=== PATIENT | female | born 1995 | race African-American/Black ===

== ENCOUNTER 2023-02-23 02:15 | Inpatient (IN) | payer SELFPAY ==
[2023-02-23] MEDS ORDERED: Ondansetron 4 MG/2 ML SDV IVPUSH ONE (02:32)
[2023-02-23] MEDS ORDERED: Sodium Chloride 0.9% 2.5 ML Syringe FLUSH PRN ×2 (02:36→07:10)
[2023-02-23] MEDS ORDERED: Sodium Chloride 0.9% 1,000 ML IV STA (02:36)
[2023-02-23] MEDS ORDERED: Sodium Chloride 0.9% 10 ML Syringe FLUSH PRN ×2 (02:36→07:10)
[2023-02-23 02:41] LABS: BASOPHILS ABSOLUTE AUTO 0.04 K/uL (0.00-0.20); BASOPHILS PERCENT AUTO 0.3 % (0.0-1.0); EOSINOPHILS ABSOLUTE AUTO 0.02 K/uL (0.00-0.45); EOSINOPHILS PERCENT AUTO 0.1 % (0.0-6.0); HEMATOCRIT 31.5 % (37.0-47.0); HEMOGLOBIN 11.2 g/dL (12.0-16.0); IMMATURE GRAN ABSOLUTE AUTO 0.05 K/uL (0.00-0.05); IMMATURE GRAN PERCENT AUTO 0.3 % (0.0-0.4); LYMPHOCYTES ABSOLUTE AUTO 1.09 K/uL (1.00-4.80); LYMPHOCYTES PERCENT AUTO 7.1 % (24.0-44.0); MEAN CORPUSCULAR HEMOGLOBIN 27.5 pg (28.0-32.0); MEAN CORPUSCULAR HGB CONC 35.6 g/dL (32.0-36.0); MEAN CORPUSCULAR VOLUME 77.4 fL (83.0-99.0); MEAN PLATELET VOLUME 9.4 fL (9.4-12.3); MONOCYTES ABSOLUTE AUTO 0.31 K/uL (0.00-0.80); NEUTROPHILS ABSOLUTE AUTO 13.89 K/uL (1.80-7.70); NEUTROPHILS PERCENT AUTO 90.2 % (41.0-71.0); PLATELET COUNT,PLT 447 K/uL (150-400); RED BLOOD CELL COUNT 4.07 M/uL (4.10-5.30)
[2023-02-23] MEDS ORDERED: diphenhydrAMINE 50 MG/ML SDV IVPUSH ONE ×2 (03:09→04:23)
[2023-02-23] MEDS ORDERED: Metoclopramide 10 MG/2 ML SDV IVPUSH ONE ×2 (03:09→04:23)
[2023-02-23 03:21] LABS: BILIRUBIN,URINE NEGATIVE (NEGATIVE); COLOR,URINE YELLOW; GLUCOSE,URINE >=1000 mg/dL (NEGATIVE); KETONES,URINE 15 mg/dL (NEGATIVE); LEUKOCYTE ESTERASE,URINE NEGATIVE (NEGATIVE); NITRITE,URINE NEGATIVE (NEGATIVE); OCCULT BLOOD,URINE SMALL (NEGATIVE); PH,URINE 6.5 (5.0-8.0); PROTEIN,URINE 100 mg/dL (NEGATIVE); UROBILINOGEN,URINE 0.2 EU/dL (<2.0)
[2023-02-23 03:23] LABS: APPEARANCE,URINE HAZY
[2023-02-23 03:33] LABS: A/G RATIO 0.5 (0.9-1.6); ALANINE AMINOTRANSFERASE,ALT 21 IU/L (14-63); ALBUMIN 2.7 g/dL (3.4-5.0); ALKALINE PHOSPHATASE 91 U/L (46-116); ASPARTATE AMNIOTRANSFERASE,AST 17 IU/L (15-37); BILIRUBIN TOTAL 0.6 mg/dL (0.2-1.0); BLOOD UREA NITROGEN,BUN 14 mg/dL (7.0-18.0); CALCIUM 9.1 mg/dL (8.5-10.1); CARBON DIOXIDE,CO2 20.7 mmol/L (21.0-32.0); CHLORIDE,CL 98 mmol/L (98-107); CREATININE 1.2 mg/dL (0.6-1.0); GLUCOSE RANDOM 422 mg/dL (74-106); LIPASE 29 U/L (16-77); POTASSIUM,K 3.9 mmol/L (3.5-5.1); PROTEIN TOTAL,TP 7.8 g/dL (6.4-8.2); SODIUM,NA 135 mmol/L (136-145)
[2023-02-23 03:34] LABS: ESTIMATED GFR 63 mL/min (>60)
[2023-02-23 03:34] LABS: BACTERIA,URINE FEW (NEGATIVE); EPITHELIAL CELLS,URINE FEW (NONE-FEW); MUCUS,URINE LIGHT (NONE-MOD)
[2023-02-23] MEDS ORDERED: Insulin Regular, Human 100 Units/ML 10 ML Vial SUBCUT ONE (03:47)
[2023-02-23] MEDS ORDERED: 50% Dextrose in Water 50 ML Syringe IVPUSH PRN ×2 (03:47→07:13)
[2023-02-23] MEDS ORDERED: Glucagon,Human Recombinant 1 MG Vial IM PRN ×2 (03:47→07:13)
[2023-02-23] MEDS ORDERED: Sodium Chloride 0.9% 1,000 ML IV ONE (03:48)
[2023-02-23 03:50] LABS: BASE EXCESS VENOUS -3.4 (-2.0-3.0); PH,VENOUS 7.34 (7.31-7.41)
[2023-02-23 04:08] LABS: HEMOGLOBIN A1C 9.9 %
[2023-02-23] MEDS ORDERED: cefTRIAXone 2 GM in Sodium Chloride 0.9% 50 ML IV ONE (04:19)
[2023-02-23] MEDS ORDERED: Acetaminophen 325 MG Tab PO PRN (07:10)
[2023-02-23] MEDS ORDERED: Metoclopramide 10 MG/2 ML SDV IVPUSH PRN (07:15)
[2023-02-23] MEDS: Sodium Chloride 0.9% 1,000 ML IV SCH ×3 (07:33→23:59)
[2023-02-23] MEDS: Insulin Aspart 100 Units/ML 3 ML Pen SUBCUT SCH ×3 (07:50→17:15)
[2023-02-23] MEDS: diphenhydrAMINE 50 MG/ML SDV IVPUSH PRN ×2 (09:39→22:14)
[2023-02-23] MEDS: Famotidine 20 MG/2 ML SDV IVPUSH SCH (13:25)
[2023-02-23 14:44] LABS: CALCIUM 7.9 mg/dL (8.5-10.1); CARBON DIOXIDE,CO2 21.8 mmol/L (21.0-32.0); EST CRCL DRUG DOSING (CG) 72.32 mL/min; POTASSIUM,K 3.5 mmol/L (3.5-5.1)
[2023-02-23 16:00] LABS: AMPHETAMINES SCREEN, URINE NEGATIVE (CUTOFF=500); BARBITURATE SCREEN,URINE NEGATIVE (CUTOFF=200); BENZODIAZEPINES SCREEN,URINE NEGATIVE (CUTOFF=150); BUPRENORPHINE SCREEN,URINE NEGATIVE (CUTOFF=10); METHADONE SCREEN, URINE NEGATIVE (CUTOFF=200); METHAMPHETAMINES SCREEN, URINE NEGATIVE (CUTOFF=500); OXYCODONE SCREEN,URINE NEGATIVE (CUT0FF=100); PCP SCREEN,URINE NEGATIVE (CUTOFF=25); THC SCREEN,URINE 20 NG/ML NEGATIVE (CUTOFF=50)
[2023-02-23] MEDS: Promethazine 25 MG/ML SDV IM PRN ×2 (16:13→23:55)
[2023-02-23 17:51] LABS: C. TRACHOMATIS BY PCR NOT DETECTED; N. GONORRHOEAE BY PCR NOT DETECTED
[2023-02-23] MEDS: Vitamin B6-pyridOXINE 50 MG Tab PO SCH (20:01)
[2023-02-23] MEDS: Doxylamine Succinate 25 MG Tab PO SCH (20:04)
[2023-02-23] MEDS: Ondansetron 4 MG/2 ML SDV IVPUSH PRN (20:30)
[2023-02-23] MEDS ORDERED: Folic Acid 1 MG Tab PO SCH (21:00)
[2023-02-23] MEDS ORDERED: TRESIBA INSULIN SUBCUT SCH (21:00)
[2023-02-23] MEDS ORDERED: Insulin Glargine,Hum.Rec.Anlog 100 UNIT/ML 3 ML Pen SUBCUT SCH (21:00)
[2023-02-24] MEDS: Ondansetron 4 MG/2 ML SDV IVPUSH PRN (02:25)
[2023-02-24] MEDS: cefTRIAXone 1 GM in Sodium Chloride 0.9% 50 ML IV SCH (04:43)
[2023-02-24 05:19] LABS: BASOPHILS ABSOLUTE AUTO 0.03 K/uL (0.00-0.20); BASOPHILS PERCENT AUTO 0.2 % (0.0-1.0); HEMATOCRIT 29.1 % (37.0-47.0); HEMOGLOBIN 10.2 g/dL (12.0-16.0); IMMATURE GRAN ABSOLUTE AUTO 0.07 K/uL (0.00-0.05); IMMATURE GRAN PERCENT AUTO 0.4 % (0.0-0.4); LYMPHOCYTES ABSOLUTE AUTO 0.93 K/uL (1.00-4.80); LYMPHOCYTES PERCENT AUTO 5.5 % (24.0-44.0); MEAN CORPUSCULAR HEMOGLOBIN 27.5 pg (28.0-32.0); MEAN CORPUSCULAR HGB CONC 35.1 g/dL (32.0-36.0); MEAN CORPUSCULAR VOLUME 78.4 fL (83.0-99.0); MEAN PLATELET VOLUME 9.6 fL (9.4-12.3); MONOCYTES ABSOLUTE AUTO 0.36 K/uL (0.00-0.80); MONOCYTES PERCENT AUTO 2.1 % (0.0-8.0); NEUTROPHILS PERCENT AUTO 91.8 % (41.0-71.0); PLATELET COUNT,PLT 390 K/uL (150-400); RED BLOOD CELL COUNT 3.71 M/uL (4.10-5.30); WHITE BLOOD CELL COUNT,WBC 16.99 K/uL (3.9-11.3)
[2023-02-24 05:54] LABS: BLOOD UREA NITROGEN,BUN 16 mg/dL (7.0-18.0); CALCIUM 7.7 mg/dL (8.5-10.1); CARBON DIOXIDE,CO2 20.1 mmol/L (21.0-32.0); CHLORIDE,CL 103 mmol/L (98-107); EST CRCL DRUG DOSING (CG) 72.32 mL/min; GLUCOSE RANDOM 330 mg/dL (74-106); MAGNESIUM 1.5 mg/dL (1.8-2.4); POTASSIUM,K 3.6 mmol/L (3.5-5.1); SODIUM,NA 136 mmol/L (136-145); TSH ULTRASENSITIVE 1.88 uIU/mL (0.36-3.74)
[2023-02-24 05:55] LABS: ESTIMATED GFR 79 mL/min (>60)
[2023-02-24] MEDS: Insulin Aspart 100 Units/ML 3 ML Pen SUBCUT SCH ×3 (07:51→17:20)
[2023-02-24] MEDS: Famotidine 20 MG/2 ML SDV IVPUSH SCH (08:01)
[2023-02-24] MEDS: Promethazine 25 MG/ML SDV IM PRN (08:03)
[2023-02-24] MEDS ORDERED: Sodium Chloride 0.9% 1,000 ML IV ONE (08:05)
[2023-02-24] MEDS: Sodium Chloride 0.9% 1,000 ML IV SCH ×5 (08:10→20:26)
[2023-02-24] MEDS ORDERED: Magnesium Sulfate/Water 4 GM in Premix Bag 1 BAG IV ONE (09:00)
[2023-02-24] MEDS ORDERED: TRESIBA INSULIN SUBCUT SCH (09:05)
[2023-02-24] MEDS: Ondansetron 4 MG/2 ML SDV IVPUSH SCH ×3 (09:31→21:59)
[2023-02-24] MEDS: TRESIBA INSULIN SUBCUT ONE ×2 (09:31→09:53)
[2023-02-24] MEDS ORDERED: Calcium Carbonate 500 MG Tab.Chew PO PRN (09:58)
[2023-02-24] MEDS: Prochlorperazine 10 MG/2 ML SDV IVPUSH SCH ×2 (13:13→20:30)
[2023-02-24] MEDS ORDERED: Promethazine 25 MG/ML SDV IM SCH (14:00)
[2023-02-24] MEDS ORDERED: Labetalol 100 MG/20 ML MDV IVPUSH PRN (14:45)
[2023-02-24] MEDS: Vitamin B6-pyridOXINE 50 MG Tab PO SCH (20:30)
[2023-02-24] MEDS: Doxylamine Succinate 25 MG Tab PO SCH ×2 (20:31→20:34)
[2023-02-24] MEDS ORDERED: Folic Acid 1 MG/0.2 ML UD Syringe IV SCH (21:00)
[2023-02-25] MEDS: Sodium Chloride 0.9% 1,000 ML IV SCH ×2 (01:11→06:08)
[2023-02-25] MEDS: Prochlorperazine 10 MG/2 ML SDV IVPUSH SCH ×3 (01:16→14:59)
[2023-02-25] MEDS: Ondansetron 4 MG/2 ML SDV IVPUSH SCH ×3 (03:59→14:59)
[2023-02-25] MEDS: cefTRIAXone 1 GM in Sodium Chloride 0.9% 50 ML IV SCH (04:01)
[2023-02-25 05:34] LABS: BASOPHILS ABSOLUTE AUTO 0.04 K/uL (0.00-0.20); BASOPHILS PERCENT AUTO 0.3 % (0.0-1.0); EOSINOPHILS ABSOLUTE AUTO 0.01 K/uL (0.00-0.45); EOSINOPHILS PERCENT AUTO 0.1 % (0.0-6.0); HEMATOCRIT 26.7 % (37.0-47.0); HEMOGLOBIN 9.5 g/dL (12.0-16.0); IMMATURE GRAN ABSOLUTE AUTO 0.04 K/uL (0.00-0.05); IMMATURE GRAN PERCENT AUTO 0.3 % (0.0-0.4); LYMPHOCYTES ABSOLUTE AUTO 1.62 K/uL (1.00-4.80); LYMPHOCYTES PERCENT AUTO 11.4 % (24.0-44.0); MEAN CORPUSCULAR HEMOGLOBIN 27.7 pg (28.0-32.0); MEAN CORPUSCULAR HGB CONC 35.6 g/dL (32.0-36.0); MEAN CORPUSCULAR VOLUME 77.8 fL (83.0-99.0); MEAN PLATELET VOLUME 9.2 fL (9.4-12.3); MONOCYTES ABSOLUTE AUTO 0.76 K/uL (0.00-0.80); MONOCYTES PERCENT AUTO 5.3 % (0.0-8.0); NEUTROPHILS PERCENT AUTO 82.6 % (41.0-71.0); PLATELET COUNT,PLT 357 K/uL (150-400); RED BLOOD CELL COUNT 3.43 M/uL (4.10-5.30); WHITE BLOOD CELL COUNT,WBC 14.27 K/uL (3.9-11.3)
[2023-02-25 05:56] LABS: A/G RATIO 0.5 (0.9-1.6); ALBUMIN 1.9 g/dL (3.4-5.0); BILIRUBIN TOTAL 0.4 mg/dL (0.2-1.0); CALCIUM 7.1 mg/dL (8.5-10.1); CARBON DIOXIDE,CO2 21.6 mmol/L (21.0-32.0); EST CRCL DRUG DOSING (CG) 72.32 mL/min; MAGNESIUM 2.4 mg/dL (1.8-2.4); PHOSPHORUS 2.7 mg/dL (2.6-4.7); POTASSIUM,K 3.6 mmol/L (3.5-5.1); PROTEIN TOTAL,TP 5.8 g/dL (6.4-8.2)
[2023-02-25] MEDS: Insulin Aspart 100 Units/ML 3 ML Pen SUBCUT SCH ×2 (07:46→12:15)
[2023-02-25] MEDS ORDERED: Sodium Chloride 0.9% 1,000 ML IV SCH (09:00)
[2023-02-25] MEDS: Famotidine 20 MG/2 ML SDV IVPUSH SCH (10:42)
== END 2023-02-25 16:05 | disposition home or self-care (01) | DRG 832 ==
LOC: MW.ED 02:15 → MW.MS 04:40 → OBSVTOIN 04:40 → MW.MS 02-24 14:48
PROVIDERS: ADMIT Internal Medicine; ATTEND Internal Medicine
DX: O21.0 Mild hyperemesis gravidarum (principal); O24.911 Unspecified diabetes mellitus in pregnancy, first trimester; O99.891 Other specified diseases and conditions complicating pregnancy; R82.71 Bacteriuria; E86.0 Dehydration; E10.65 Type 1 diabetes mellitus with hyperglycemia; O99.281 Endocrine, nutritional and metabolic diseases complicating pregnancy, first trimester; Z79.4 Long term (current) use of insulin
CPT/HCPCS: 36415; 76817; 76817-26; 80048; 80053; 80305-QW; 81001; 82009; 82803; 82947; 83036; 83690; 83735; 84100; 84443; 84702; 85025; 86592; 86762; 86803; 86850; 86900; 86901; 87086; 87340; 87389; 87491; 87591; 93005; 93010; 96361; 96365; 96366; 96372; 96375; 96376; 99222; 99232; 99238; 99284; 99284-25; A9270-GY; G0378; J0696; J0780; J1200; J1815-GY; J1920; J2405; J2550; J2765; J3475; J3490; J7030

== ENCOUNTER 2023-03-17 10:49 | Emergency (ER) | payer OTHER ==
[2023-03-17 11:52] LABS: BASOPHILS ABSOLUTE AUTO 0.03 K/uL (0.00-0.20); BASOPHILS PERCENT AUTO 0.3 % (0.0-1.0); EOSINOPHILS ABSOLUTE AUTO 0.14 K/uL (0.00-0.45); EOSINOPHILS PERCENT AUTO 1.4 % (0.0-6.0); HEMATOCRIT 32.5 % (37.0-47.0); HEMOGLOBIN 11.2 g/dL (12.0-16.0); IMMATURE GRAN ABSOLUTE AUTO 0.04 K/uL (0.00-0.05); IMMATURE GRAN PERCENT AUTO 0.4 % (0.0-0.4); LYMPHOCYTES ABSOLUTE AUTO 1.58 K/uL (1.00-4.80); LYMPHOCYTES PERCENT AUTO 15.3 % (24.0-44.0); MEAN CORPUSCULAR HEMOGLOBIN 26.8 pg (28.0-32.0); MEAN CORPUSCULAR HGB CONC 34.5 g/dL (32.0-36.0); MEAN CORPUSCULAR VOLUME 77.8 fL (83.0-99.0); MEAN PLATELET VOLUME 8.8 fL (9.4-12.3); MONOCYTES ABSOLUTE AUTO 0.44 K/uL (0.00-0.80); MONOCYTES PERCENT AUTO 4.3 % (0.0-8.0); NEUTROPHILS ABSOLUTE AUTO 8.11 K/uL (1.80-7.70); NEUTROPHILS PERCENT AUTO 78.3 % (41.0-71.0); PLATELET COUNT,PLT 392 K/uL (150-400); RED BLOOD CELL COUNT 4.18 M/uL (4.10-5.30); WHITE BLOOD CELL COUNT,WBC 10.34 K/uL (3.9-11.3)
[2023-03-17 12:22] LABS: A/G RATIO 0.5 (0.9-1.6); ALBUMIN 2.1 g/dL (3.4-5.0); BILIRUBIN TOTAL 0.4 mg/dL (0.2-1.0); CALCIUM 8.6 mg/dL (8.5-10.1); CARBON DIOXIDE,CO2 25.2 mmol/L (21.0-32.0); CREATININE 0.9 mg/dL (0.6-1.0); EST CRCL DRUG DOSING (CG) 80.36 mL/min; POTASSIUM,K 4.1 mmol/L (3.5-5.1); PROTEIN TOTAL,TP 6.8 g/dL (6.4-8.2)
[2023-03-17 13:18] LABS: APPEARANCE,URINE SLT CLOUDY; BILIRUBIN,URINE NEGATIVE (NEGATIVE); COLOR,URINE YELLOW; GLUCOSE,URINE NEGATIVE (NEGATIVE); KETONES,URINE NEGATIVE (NEGATIVE); LEUKOCYTE ESTERASE,URINE NEGATIVE (NEGATIVE); NITRITE,URINE POSITIVE (NEGATIVE); OCCULT BLOOD,URINE LARGE (NEGATIVE); PROTEIN,URINE >=300 mg/dL (NEGATIVE); UROBILINOGEN,URINE 0.2 EU/dL (<2.0)
[2023-03-17 13:28] LABS: RBC,URINE 100-110 (0-2/HPF)
[2023-03-17 13:29] LABS: BACTERIA,URINE 3+ (NEGATIVE); EPITHELIAL CELLS,URINE FEW (NONE-FEW)
[2023-03-17] MEDS ORDERED: Cephalexin 250 MG Cap PO ONE (13:58)
== END 2023-03-17 14:26 | disposition home or self-care (01) ==
LOC: MW.ED 10:49
DX: O23.11 Infections of bladder in pregnancy, first trimester (principal); E10.9 Type 1 diabetes mellitus without complications; Z79.899 Other long term (current) drug therapy; Z3A.10 10 weeks gestation of pregnancy
CPT/HCPCS: 36415; 76815; 80053; 81001; 83690; 85025; 86900; 86901; 87086; 99284; A9270

== ENCOUNTER 2024-09-14 02:09 | Inpatient (IN) | payer OTHER ==
[2024-09-14 02:44] LABS: BASOPHILS ABSOLUTE AUTO 0.04 K/uL (0.00-0.20); BASOPHILS PERCENT AUTO 0.4 % (0.0-1.0); EOSINOPHILS ABSOLUTE AUTO 0.03 K/uL (0.00-0.45); EOSINOPHILS PERCENT AUTO 0.3 % (0.0-6.0); HEMATOCRIT 35.7 % (37.0-47.0); HEMOGLOBIN 12.1 g/dL (12.0-16.0); IMMATURE GRAN ABSOLUTE AUTO 0.04 K/uL (0.00-0.05); IMMATURE GRAN PERCENT AUTO 0.4 % (0.0-0.4); LYMPHOCYTES ABSOLUTE AUTO 1.53 K/uL (1.00-4.80); LYMPHOCYTES PERCENT AUTO 13.5 % (24.0-44.0); MEAN CORPUSCULAR HEMOGLOBIN 26.6 pg (28.0-32.0); MEAN CORPUSCULAR HGB CONC 33.9 g/dL (32.0-36.0); MEAN CORPUSCULAR VOLUME 78.5 fL (83.0-99.0); MEAN PLATELET VOLUME 9.6 fL (9.4-12.3); MONOCYTES ABSOLUTE AUTO 0.43 K/uL (0.00-0.80); MONOCYTES PERCENT AUTO 3.8 % (0.0-8.0); NEUTROPHILS ABSOLUTE AUTO 9.29 K/uL (1.80-7.70); NEUTROPHILS PERCENT AUTO 81.6 % (41.0-71.0); PLATELET COUNT,PLT 431 K/uL (150-400); RED BLOOD CELL COUNT 4.55 M/uL (4.10-5.30); WHITE BLOOD CELL COUNT,WBC 11.36 K/uL (3.9-11.3)
[2024-09-14] MEDS: Sodium Chloride 0.9% 1,000 ML IV ONE ×2 (02:45→03:22)
[2024-09-14] MEDS: droPERidol 2.5 MG/ML SDV IVPUSH ONE ×2 (02:46→03:47)
[2024-09-14 03:07] LABS: A/G RATIO 0.8 (0.9-1.6); ACETAMINOPHEN <2.0 ug/mL; ALANINE AMINOTRANSFERASE,ALT 24 IU/L (14-63); ALBUMIN 3.7 g/dL (3.4-5.0); ALKALINE PHOSPHATASE 136 U/L (46-116); ASPARTATE AMNIOTRANSFERASE,AST 26 IU/L (15-37); BLOOD UREA NITROGEN,BUN 29 mg/dL (7.0-18.0); CALCIUM 9.7 mg/dL (8.5-10.1); CARBON DIOXIDE,CO2 22.4 mmol/L (21.0-32.0); CHLORIDE,CL 97 mmol/L (98-107); CREATININE 1.5 mg/dL (0.6-1.0); EST CRCL DRUG DOSING (CG) 47.79 mL/min; ESTIMATED GFR 48 mL/min (>60); ETHANOL BLOOD MEDICAL <3 mg/dL; GLUCOSE RANDOM 271 mg/dL (74-106); LIPASE 27 U/L (16-77); POTASSIUM,K 3.9 mmol/L (3.5-5.1); PROTEIN TOTAL,TP 8.5 g/dL (6.4-8.2); SALICYLATE 0.6 mg/dL (0.0-20.0); SODIUM,NA 130 mmol/L (136-145)
[2024-09-14 04:48] LABS: AMPHETAMINES SCREEN, URINE NEGATIVE (CUTOFF=500); BARBITURATE SCREEN,URINE NEGATIVE (CUTOFF=200); BENZODIAZEPINES SCREEN,URINE NEGATIVE (CUTOFF=150); BUPRENORPHINE SCREEN,URINE NEGATIVE (CUTOFF=10); METHADONE SCREEN, URINE NEGATIVE (CUTOFF=200); METHAMPHETAMINES SCREEN, URINE NEGATIVE (CUTOFF=500); OXYCODONE SCREEN,URINE NEGATIVE (CUT0FF=100); PCP SCREEN,URINE NEGATIVE (CUTOFF=25); THC SCREEN,URINE 20 NG/ML PRESUMPTIVE POSITIVE (CUTOFF=50)
[2024-09-14] MEDS: Metoclopramide 10 MG/2 ML SDV IVPUSH ONE (05:06)
[2024-09-14] MEDS: diphenhydrAMINE 50 MG/ML SDV IVPUSH ONE (05:07)
[2024-09-14] MEDS ORDERED: Acetaminophen 650 MG Supp RECTAL PRN (07:10)
[2024-09-14] MEDS ORDERED: Polyethylene Glycol 3350 Powder 17 GM Packet PO PRN (07:10)
[2024-09-14] MEDS ORDERED: Sodium Chloride 0.9% 2.5 ML Syringe FLUSH PRN (07:10)
[2024-09-14] MEDS ORDERED: Acetaminophen 325 MG Tab PO PRN (07:10)
[2024-09-14] MEDS ORDERED: Sodium Chloride 0.9% 10 ML Syringe FLUSH PRN (07:10)
[2024-09-14] MEDS ORDERED: Sodium Chloride 0.9% 1,000 ML IV SCH (07:15)
[2024-09-14] MEDS ORDERED: 50% Dextrose in Water 50 ML Syringe IVPUSH PRN (07:26)
[2024-09-14] MEDS ORDERED: Glucagon,Human Recombinant 1 MG Vial IM PRN (07:26)
[2024-09-14] MEDS: Insulin Regular, Human 100 Units/ML 10 ML Vial IVPUSH STA (07:32)
[2024-09-14] MEDS: Enoxaparin 40 MG/0.4 ML Syringe SUBCUT SCH (07:33)
[2024-09-14] MEDS: Pantoprazole 40 MG in Sodium Chloride 0.9% 10 ML IVPUSH SCH (07:33)
[2024-09-14] MEDS: Insulin Aspart 100 Units/ML 3 ML Pen SUBCUT SCH (08:24)
[2024-09-14] MEDS: Losartan 50 MG Tab PO SCH (08:25)
[2024-09-14] MEDS: FLUoxetine 20 MG Cap PO SCH (08:26)
[2024-09-14] MEDS: Eplerenone 25 MG Tab PO SCH (08:29)
[2024-09-14] MEDS: Prochlorperazine 10 MG/2 ML SDV IV PRN (08:33)
[2024-09-14] MEDS: Sodium Chloride 0.9% 1,000 ML IV SCH ×2 (08:39→16:56)
[2024-09-14 12:00] LABS: BASOPHILS ABSOLUTE AUTO 0.02 K/uL (0.00-0.20); BASOPHILS PERCENT AUTO 0.1 % (0.0-1.0); HEMATOCRIT 29.5 % (37.0-47.0); IMMATURE GRAN ABSOLUTE AUTO 0.11 K/uL (0.00-0.05); IMMATURE GRAN PERCENT AUTO 0.5 % (0.0-0.4); LYMPHOCYTES ABSOLUTE AUTO 0.83 K/uL (1.00-4.80); LYMPHOCYTES PERCENT AUTO 3.6 % (24.0-44.0); MEAN CORPUSCULAR HEMOGLOBIN 26.7 pg (28.0-32.0); MEAN CORPUSCULAR HGB CONC 33.9 g/dL (32.0-36.0); MEAN CORPUSCULAR VOLUME 78.9 fL (83.0-99.0); MEAN PLATELET VOLUME 9.3 fL (9.4-12.3); MONOCYTES ABSOLUTE AUTO 0.27 K/uL (0.00-0.80); MONOCYTES PERCENT AUTO 1.2 % (0.0-8.0); NEUTROPHILS ABSOLUTE AUTO 22.15 K/uL (1.80-7.70); NEUTROPHILS PERCENT AUTO 94.6 % (41.0-71.0); PLATELET COUNT,PLT 362 K/uL (150-400); RED BLOOD CELL COUNT 3.74 M/uL (4.10-5.30); WHITE BLOOD CELL COUNT,WBC 23.38 K/uL (3.9-11.3)
[2024-09-14 12:30] LABS: CARBON DIOXIDE,CO2 18.9 mmol/L (21.0-32.0); CREATININE 1.4 mg/dL (0.6-1.0); EST CRCL DRUG DOSING (CG) 51.2 mL/min; MAGNESIUM 1.6 mg/dL (1.8-2.4); POTASSIUM,K 4.1 mmol/L (3.5-5.1)
[2024-09-14 13:03] LABS: BILIRUBIN,URINE NEGATIVE (NEGATIVE); COLOR,URINE YELLOW; GLUCOSE,URINE >=1000 mg/dL (NEGATIVE); KETONES,URINE 15 mg/dL (NEGATIVE); LEUKOCYTE ESTERASE,URINE NEGATIVE (NEGATIVE); NITRITE,URINE NEGATIVE (NEGATIVE); OCCULT BLOOD,URINE SMALL (NEGATIVE); PROTEIN,URINE 100 mg/dL (NEGATIVE); UROBILINOGEN,URINE 0.2 EU/dL (<2.0)
[2024-09-14 13:06] LABS: APPEARANCE,URINE SLT CLOUDY; EPITHELIAL CELLS,URINE RARE (NONE-FEW); RBC,URINE 0-1 (0-2/HPF)
[2024-09-14] MEDS: Iopamidol 755 MG/ML 500 ML Multipack Bottle IVPUSH STA (13:06)
[2024-09-14 13:07] LABS: BACTERIA,URINE 4+ (NEGATIVE)
[2024-09-14] MEDS: cefTRIAXone 1 GM in Water For Injection, Sterile 10 ML IVPUSH SCH (14:57)
[2024-09-14 16:28] LABS: CALCIUM 8.2 mg/dL (8.5-10.1); CARBON DIOXIDE,CO2 14.1 mmol/L (21.0-32.0); CREATININE 1.5 mg/dL (0.6-1.0); EST CRCL DRUG DOSING (CG) 47.79 mL/min; POTASSIUM,K 4.6 mmol/L (3.5-5.1)
[2024-09-14] MEDS: Insulin Regular in 0.9 % NACL 100 ML IV SCH (17:13)
[2024-09-14 18:50] LABS: LACTIC ACID 1.6 mmol/L (0.4-2.0)
[2024-09-14] MEDS: Dextrose 5%-0.45% NaCl 1,000 ML IV SCH (18:50)
[2024-09-14 20:27] LABS: CALCIUM 7.9 mg/dL (8.5-10.1); CARBON DIOXIDE,CO2 18.8 mmol/L (21.0-32.0); CREATININE 1.5 mg/dL (0.6-1.0); EST CRCL DRUG DOSING (CG) 47.79 mL/min; POTASSIUM,K 3.9 mmol/L (3.5-5.1)
[2024-09-15 00:56] LABS: CALCIUM 7.6 mg/dL (8.5-10.1); CARBON DIOXIDE,CO2 18.6 mmol/L (21.0-32.0); CREATININE 1.5 mg/dL (0.6-1.0); EST CRCL DRUG DOSING (CG) 47.79 mL/min; POTASSIUM,K 3.7 mmol/L (3.5-5.1)
[2024-09-15 04:26] LABS: CALCIUM 7.5 mg/dL (8.5-10.1); CARBON DIOXIDE,CO2 22.1 mmol/L (21.0-32.0); CREATININE 1.4 mg/dL (0.6-1.0); EST CRCL DRUG DOSING (CG) 51.2 mL/min; POTASSIUM,K 3.9 mmol/L (3.5-5.1)
[2024-09-15] MEDS: LORazepam 2 MG/ML SDV IVPUSH PRN (08:27)
[2024-09-15 08:28] LABS: CALCIUM 7.5 mg/dL (8.5-10.1); CARBON DIOXIDE,CO2 20.8 mmol/L (21.0-32.0); CREATININE 1.2 mg/dL (0.6-1.0); EST CRCL DRUG DOSING (CG) 59.73 mL/min; POTASSIUM,K 3.5 mmol/L (3.5-5.1)
[2024-09-15] MEDS: Bisacodyl 10 MG Supp RECTAL ONE (11:33)
[2024-09-15 12:54] LABS: CALCIUM 7.6 mg/dL (8.5-10.1); CARBON DIOXIDE,CO2 21.6 mmol/L (21.0-32.0); CREATININE 1.2 mg/dL (0.6-1.0); EST CRCL DRUG DOSING (CG) 59.73 mL/min; POTASSIUM,K 3.7 mmol/L (3.5-5.1)
[2024-09-15 18:42] LABS: CALCIUM 7.9 mg/dL (8.5-10.1); CREATININE 1.1 mg/dL (0.6-1.0); EST CRCL DRUG DOSING (CG) 65.16 mL/min; POTASSIUM,K 3.6 mmol/L (3.5-5.1)
[2024-09-15] MEDS: Bisacodyl 10 MG Supp RECTAL SCH (18:44)
[2024-09-15 20:06] LABS: HEMATOCRIT 28.6 % (37.0-47.0); HEMOGLOBIN 9.6 g/dL (12.0-16.0); MEAN CORPUSCULAR HEMOGLOBIN 26.7 pg (28.0-32.0); MEAN CORPUSCULAR HGB CONC 33.6 g/dL (32.0-36.0); MEAN CORPUSCULAR VOLUME 79.7 fL (83.0-99.0); MEAN PLATELET VOLUME 9.4 fL (9.4-12.3); PLATELET COUNT,PLT 315 K/uL (150-400); RED BLOOD CELL COUNT 3.59 M/uL (4.10-5.30); WHITE BLOOD CELL COUNT,WBC 15.23 K/uL (3.9-11.3)
[2024-09-15] MEDS: Eplerenone 25 MG Tab PO SCH (20:42)
[2024-09-15] MEDS: Losartan 50 MG Tab PO SCH (22:00)
[2024-09-16 01:07] LABS: CALCIUM 7.9 mg/dL (8.5-10.1); CARBON DIOXIDE,CO2 21.8 mmol/L (21.0-32.0); CREATININE 1.1 mg/dL (0.6-1.0); EST CRCL DRUG DOSING (CG) 65.16 mL/min; POTASSIUM,K 3.3 mmol/L (3.5-5.1)
[2024-09-16 06:38] LABS: BASOPHILS ABSOLUTE AUTO 0.04 K/uL (0.00-0.20); BASOPHILS PERCENT AUTO 0.3 % (0.0-1.0); EOSINOPHILS ABSOLUTE AUTO 0.01 K/uL (0.00-0.45); EOSINOPHILS PERCENT AUTO 0.1 % (0.0-6.0); HEMATOCRIT 29.6 % (37.0-47.0); HEMOGLOBIN 9.9 g/dL (12.0-16.0); IMMATURE GRAN ABSOLUTE AUTO 0.04 K/uL (0.00-0.05); IMMATURE GRAN PERCENT AUTO 0.3 % (0.0-0.4); LYMPHOCYTES ABSOLUTE AUTO 1.06 K/uL (1.00-4.80); LYMPHOCYTES PERCENT AUTO 7.7 % (24.0-44.0); MEAN CORPUSCULAR HEMOGLOBIN 26.4 pg (28.0-32.0); MEAN CORPUSCULAR HGB CONC 33.4 g/dL (32.0-36.0); MEAN CORPUSCULAR VOLUME 78.9 fL (83.0-99.0); MEAN PLATELET VOLUME 9.6 fL (9.4-12.3); MONOCYTES ABSOLUTE AUTO 0.65 K/uL (0.00-0.80); MONOCYTES PERCENT AUTO 4.7 % (0.0-8.0); NEUTROPHILS ABSOLUTE AUTO 11.99 K/uL (1.80-7.70); NEUTROPHILS PERCENT AUTO 86.9 % (41.0-71.0); PLATELET COUNT,PLT 348 K/uL (150-400); RED BLOOD CELL COUNT 3.75 M/uL (4.10-5.30); WHITE BLOOD CELL COUNT,WBC 13.79 K/uL (3.9-11.3)
[2024-09-16 06:51] LABS: CALCIUM 7.7 mg/dL (8.5-10.1); CARBON DIOXIDE,CO2 22.9 mmol/L (21.0-32.0); EST CRCL DRUG DOSING (CG) 71.68 mL/min; MAGNESIUM 1.4 mg/dL (1.8-2.4); POTASSIUM,K 3.3 mmol/L (3.5-5.1)
[2024-09-16] MEDS: Potassium Chloride 20 MEQ Tab.ER PO ONE (12:19)
[2024-09-16] MEDS: Magnesium Sulfate 2 GM/50 mL 2 GM in Premix Bag 1 BAG IV ONE (12:19)
[2024-09-16] MEDS: Phosphorus #1 250 MG Tab PO SCH (12:19)
[2024-09-16 12:27] LABS: CALCIUM 7.8 mg/dL (8.5-10.1); EST CRCL DRUG DOSING (CG) 71.68 mL/min; POTASSIUM,K 3.2 mmol/L (3.5-5.1)
[2024-09-16] MEDS: Insulin Aspart 100 Units/ML 3 ML Pen SUBCUT SCH (16:14)
== END 2024-09-16 20:40 | disposition home or self-care (01) | DRG 638 ==
LOC: MW.ED 02:09 → MW.MS 06:38 → OBSVTOIN 16:37 → MW.ICU 17:07
PROVIDERS: ADMIT Family Medicine; ATTEND Family Medicine
DX: E10.10 Type 1 diabetes mellitus with ketoacidosis without coma (principal); E87.1 Hypo-osmolality and hyponatremia; N17.9 Acute kidney failure, unspecified; N39.0 Urinary tract infection, site not specified; I10 Essential (primary) hypertension; F12.90 Cannabis use, unspecified, uncomplicated; K59.00 Constipation, unspecified; Z87.440 Personal history of urinary (tract) infections; Z79.899 Other long term (current) drug therapy
CPT/HCPCS: 36415; 74177; 74177-26; 80048; 80053; 80143; 80179; 80305; 80307; 81001; 82009; 82947; 83605; 83690; 83735; 84100; 84703; 85025; 85027; 87040; 87086; 87088; 87186; 93005; 93010; 96361; 96372; 96374; 96375; 96376; 99223; 99232; 99239; 99285; 99285-25; A9270-GY; G0378; J0696; J0780; J1200; J1650; J1790; J1815-GY; J2060; J2470; J2765; J3475; J7030; Q9967

== ENCOUNTER 2024-10-04 15:36 | Inpatient (IN) | payer OTHER ==
[2024-10-04] MEDS: Ondansetron 4 MG/2 ML SDV IVPUSH ONE (16:13)
[2024-10-04] MEDS ORDERED: 50% Dextrose in Water 50 ML Syringe IVPUSH PRN ×3 (16:21→22:43)
[2024-10-04 16:24] LABS: BASOPHILS ABSOLUTE AUTO 0.03 K/uL (0.00-0.20); BASOPHILS PERCENT AUTO 0.2 % (0.0-1.0); EOSINOPHILS ABSOLUTE AUTO 0.01 K/uL (0.00-0.45); EOSINOPHILS PERCENT AUTO 0.1 % (0.0-6.0); IMMATURE GRAN ABSOLUTE AUTO 0.03 K/uL (0.00-0.05); IMMATURE GRAN PERCENT AUTO 0.2 % (0.0-0.4); LYMPHOCYTES ABSOLUTE AUTO 0.70 K/uL (1.00-4.80); LYMPHOCYTES PERCENT AUTO 5.2 % (24.0-44.0); MEAN PLATELET VOLUME 9.2 fL (9.4-12.3); MONOCYTES ABSOLUTE AUTO 0.16 K/uL (0.00-0.80); MONOCYTES PERCENT AUTO 1.2 % (0.0-8.0); NEUTROPHILS ABSOLUTE AUTO 12.42 K/uL (1.80-7.70); NEUTROPHILS PERCENT AUTO 93.1 % (41.0-71.0); NRBC ABSOLUTE 0.00 K/uL (0.00-0.02); NRBC PERCENT 0.0 /100WBC (0.0-0.2); PLATELET COUNT,PLT 431 K/uL (150-400); RED BLOOD CELL COUNT 4.10 M/uL (4.10-5.30); WHITE BLOOD CELL COUNT,WBC 13.35 K/uL (3.9-11.3)
[2024-10-04 16:26] LABS: PCO2 VENOUS 26.0 mmHG (41-51); PH,VENOUS 7.52 (7.32-7.43)
[2024-10-04 16:27] LABS: BASE EXCESS VENOUS -0.5 (-2.0-3.0); BICARBONATE,VENOUS 21.0 mEq/L (22-29); PO2 VENOUS 32.0 mmHG (35-45)
[2024-10-04] MEDS: Insulin Regular, Human 100 Units/ML 10 ML Vial SUBCUT ONE ×2 (16:29→21:18)
[2024-10-04 16:50] LABS: A/G RATIO 0.6 (0.9-1.6); ALANINE AMINOTRANSFERASE,ALT 32.0 IU/L (14-63); ASPARTATE AMNIOTRANSFERASE,AST 28.0 IU/L (15-37); BILIRUBIN TOTAL 0.7 mg/dL (0.2-1.0); BLOOD UREA NITROGEN,BUN 16.0 mg/dL (7.0-18.0); CARBON DIOXIDE,CO2 20.1 mmol/L (21.0-32.0); CHLORIDE,CL 101.0 mmol/L (98-107); CREATININE 1.4 mg/dL (0.6-1.0); EST CRCL DRUG DOSING (CG) 44.74 mL/min; GLUCOSE RANDOM 266.0 mg/dL (74-106); POTASSIUM,K 4.1 mmol/L (3.5-5.1); PROTEIN TOTAL,TP 7.6 g/dL (6.4-8.2); SODIUM,NA 135.0 mmol/L (136-145)
[2024-10-04 16:52] LABS: ESTIMATED GFR 52.0 mL/min (>60)
[2024-10-04 16:56] LABS: LACTIC ACID 3.2 mmol/L (0.4-2.0)
[2024-10-04] MEDS: Iopamidol 755 MG/ML 500 ML Multipack Bottle IVPUSH STA (17:16)
[2024-10-04] MEDS: Magnesium Sulfate 2 GM/50 mL 2 GM in Premix Bag 1 BAG IV ONE (17:24)
[2024-10-04 17:26] LABS: APPEARANCE,URINE SLT CLOUDY; GLUCOSE,URINE 500 mg/dL (NEGATIVE); OCCULT BLOOD,URINE SMALL (NEGATIVE)
[2024-10-04 17:38] LABS: EPITHELIAL CELLS,URINE NOT SEEN (NONE-FEW)
[2024-10-04] MEDS: cefTRIAXone 1 GM in Water For Injection, Sterile 10 ML IVPUSH ONE (18:09)
[2024-10-04 18:42] LABS: A/G RATIO 0.6 (0.9-1.6); ALANINE AMINOTRANSFERASE,ALT 34.0 IU/L (14-63); ASPARTATE AMNIOTRANSFERASE,AST 29.0 IU/L (15-37); BILIRUBIN TOTAL 0.7 mg/dL (0.2-1.0); BLOOD UREA NITROGEN,BUN 15.0 mg/dL (7.0-18.0); CARBON DIOXIDE,CO2 19.6 mmol/L (21.0-32.0); CHLORIDE,CL 104.0 mmol/L (98-107); CREATININE 1.3 mg/dL (0.6-1.0); EST CRCL DRUG DOSING (CG) 48.18 mL/min; GLUCOSE RANDOM 196.0 mg/dL (74-106); POTASSIUM,K 3.7 mmol/L (3.5-5.1); PROTEIN TOTAL,TP 7.0 g/dL (6.4-8.2); SODIUM,NA 137.0 mmol/L (136-145)
[2024-10-04 18:44] LABS: ESTIMATED GFR 57.0 mL/min (>60)
[2024-10-04 18:47] LABS: LACTIC ACID 2.4 mmol/L (0.4-2.0)
[2024-10-04] MEDS: droPERidol 2.5 MG/ML SDV IVPUSH ONE (19:11)
[2024-10-04] MEDS: Ondansetron 4 MG/2 ML SDV IVPUSH PRN (23:33)
[2024-10-04] MEDS ORDERED: Sodium Chloride 0.9% 2.5 ML Syringe FLUSH PRN (23:38)
[2024-10-04] MEDS ORDERED: Sodium Chloride 0.9% 10 ML Syringe FLUSH PRN (23:38)
[2024-10-05] MEDS: Metoprolol Tartrate 5 MG/5 ML SDV IVPUSH ONE (04:55)
[2024-10-05 06:02] LABS: BASOPHILS ABSOLUTE AUTO 0.01 K/uL (0.00-0.20); BASOPHILS PERCENT AUTO 0.1 % (0.0-1.0); EOSINOPHILS ABSOLUTE AUTO 0.00 K/uL (0.00-0.45); EOSINOPHILS PERCENT AUTO 0.0 % (0.0-6.0); IMMATURE GRAN ABSOLUTE AUTO 0.03 K/uL (0.00-0.05); IMMATURE GRAN PERCENT AUTO 0.2 % (0.0-0.4); LYMPHOCYTES ABSOLUTE AUTO 0.54 K/uL (1.00-4.80); LYMPHOCYTES PERCENT AUTO 4.3 % (24.0-44.0); MEAN PLATELET VOLUME 9.4 fL (9.4-12.3); MONOCYTES ABSOLUTE AUTO 0.26 K/uL (0.00-0.80); MONOCYTES PERCENT AUTO 2.1 % (0.0-8.0); NEUTROPHILS ABSOLUTE AUTO 11.79 K/uL (1.80-7.70); NEUTROPHILS PERCENT AUTO 93.3 % (41.0-71.0); NRBC ABSOLUTE 0.00 K/uL (0.00-0.02); NRBC PERCENT 0.0 /100WBC (0.0-0.2); PLATELET COUNT,PLT 370 K/uL (150-400); RED BLOOD CELL COUNT 3.65 M/uL (4.10-5.30); WHITE BLOOD CELL COUNT,WBC 12.63 K/uL (3.9-11.3)
[2024-10-05 06:29] LABS: BLOOD UREA NITROGEN,BUN 18.0 mg/dL (7.0-18.0); CARBON DIOXIDE,CO2 16.3 mmol/L (21.0-32.0); CHLORIDE,CL 105.0 mmol/L (98-107); CREATININE 1.3 mg/dL (0.6-1.0); EST CRCL DRUG DOSING (CG) 55.14 mL/min; GLUCOSE RANDOM 276.0 mg/dL (74-106); POTASSIUM,K 4.0 mmol/L (3.5-5.1); SODIUM,NA 137.0 mmol/L (136-145)
[2024-10-05 06:31] LABS: ESTIMATED GFR 57.0 mL/min (>60)
[2024-10-05] MEDS: Enalaprilat 1.25 MG/ML SDV IVPUSH SCH (10:29)
[2024-10-05 10:52] LABS: BLOOD UREA NITROGEN,BUN 19.0 mg/dL (7.0-18.0); CHLORIDE,CL 106.0 mmol/L (98-107); CREATININE 1.4 mg/dL (0.6-1.0); EST CRCL DRUG DOSING (CG) 51.2 mL/min; GLUCOSE RANDOM 270.0 mg/dL (74-106); POTASSIUM,K 3.6 mmol/L (3.5-5.1); SODIUM,NA 138.0 mmol/L (136-145)
[2024-10-05 11:15] LABS: CARBON DIOXIDE,CO2 15.7 mmol/L (21.0-32.0)
[2024-10-05 11:17] LABS: ESTIMATED GFR 52.0 mL/min (>60)
[2024-10-05] MEDS ORDERED: 50% Dextrose in Water 50 ML Syringe IVPUSH PRN (11:26)
[2024-10-05] MEDS: D5 1/2 NS w/ 20 mEq/L KCl 1,000 ML IV SCH (16:31)
[2024-10-05] MEDS: cefTRIAXone 1 GM in Water For Injection, Sterile 10 ML IVPUSH SCH (17:23)
[2024-10-05 17:38] LABS: BLOOD UREA NITROGEN,BUN 19.0 mg/dL (7.0-18.0); CARBON DIOXIDE,CO2 18.0 mmol/L (21.0-32.0); CHLORIDE,CL 103.0 mmol/L (98-107); CREATININE 1.3 mg/dL (0.6-1.0); EST CRCL DRUG DOSING (CG) 55.14 mL/min; GLUCOSE RANDOM 183.0 mg/dL (74-106); POTASSIUM,K 3.8 mmol/L (3.5-5.1); SODIUM,NA 134.0 mmol/L (136-145)
[2024-10-05 17:40] LABS: ESTIMATED GFR 57.0 mL/min (>60)
[2024-10-05 21:13] LABS: BLOOD UREA NITROGEN,BUN 18.0 mg/dL (7.0-18.0); CARBON DIOXIDE,CO2 20.8 mmol/L (21.0-32.0); CHLORIDE,CL 103.0 mmol/L (98-107); CREATININE 1.3 mg/dL (0.6-1.0); EST CRCL DRUG DOSING (CG) 55.14 mL/min; GLUCOSE RANDOM 209.0 mg/dL (74-106); POTASSIUM,K 3.9 mmol/L (3.5-5.1); SODIUM,NA 134.0 mmol/L (136-145)
[2024-10-05 21:39] LABS: ESTIMATED GFR 57.0 mL/min (>60)
[2024-10-06 01:22] LABS: BLOOD UREA NITROGEN,BUN 15.0 mg/dL (7.0-18.0); CARBON DIOXIDE,CO2 20.4 mmol/L (21.0-32.0); CHLORIDE,CL 103.0 mmol/L (98-107); CREATININE 1.2 mg/dL (0.6-1.0); EST CRCL DRUG DOSING (CG) 59.73 mL/min; GLUCOSE RANDOM 196.0 mg/dL (74-106); POTASSIUM,K 3.8 mmol/L (3.5-5.1); SODIUM,NA 133.0 mmol/L (136-145)
[2024-10-06 01:43] LABS: ESTIMATED GFR 63.0 mL/min (>60)
[2024-10-06] MEDS ORDERED: Labetalol 100 MG/20 ML MDV IVPUSH PRN (02:16)
[2024-10-06 05:30] LABS: BASOPHILS ABSOLUTE AUTO 0.01 K/uL (0.00-0.20); BASOPHILS PERCENT AUTO 0.1 % (0.0-1.0); EOSINOPHILS ABSOLUTE AUTO 0.00 K/uL (0.00-0.45); EOSINOPHILS PERCENT AUTO 0.0 % (0.0-6.0); IMMATURE GRAN ABSOLUTE AUTO 0.05 K/uL (0.00-0.05); IMMATURE GRAN PERCENT AUTO 0.3 % (0.0-0.4); LYMPHOCYTES ABSOLUTE AUTO 1.09 K/uL (1.00-4.80); LYMPHOCYTES PERCENT AUTO 6.8 % (24.0-44.0); MEAN PLATELET VOLUME 9.7 fL (9.4-12.3); MONOCYTES ABSOLUTE AUTO 0.73 K/uL (0.00-0.80); MONOCYTES PERCENT AUTO 4.5 % (0.0-8.0); NEUTROPHILS ABSOLUTE AUTO 14.25 K/uL (1.80-7.70); NEUTROPHILS PERCENT AUTO 88.3 % (41.0-71.0); NRBC ABSOLUTE 0.00 K/uL (0.00-0.02); NRBC PERCENT 0.0 /100WBC (0.0-0.2); PLATELET COUNT,PLT 385 K/uL (150-400); RED BLOOD CELL COUNT 3.69 M/uL (4.10-5.30); WHITE BLOOD CELL COUNT,WBC 16.13 K/uL (3.9-11.3)
[2024-10-06 05:53] LABS: BLOOD UREA NITROGEN,BUN 13.0 mg/dL (7.0-18.0); CARBON DIOXIDE,CO2 21.4 mmol/L (21.0-32.0); CHLORIDE,CL 102.0 mmol/L (98-107); CREATININE 1.2 mg/dL (0.6-1.0); EST CRCL DRUG DOSING (CG) 59.73 mL/min; GLUCOSE RANDOM 201.0 mg/dL (74-106); POTASSIUM,K 3.8 mmol/L (3.5-5.1); SODIUM,NA 133.0 mmol/L (136-145)
[2024-10-06 05:55] LABS: ESTIMATED GFR 63.0 mL/min (>60)
[2024-10-06 09:06] LABS: BLOOD UREA NITROGEN,BUN 13.0 mg/dL (7.0-18.0); CARBON DIOXIDE,CO2 21.2 mmol/L (21.0-32.0); CHLORIDE,CL 101.0 mmol/L (98-107); CREATININE 1.1 mg/dL (0.6-1.0); EST CRCL DRUG DOSING (CG) 65.16 mL/min; GLUCOSE RANDOM 201.0 mg/dL (74-106); POTASSIUM,K 3.8 mmol/L (3.5-5.1); SODIUM,NA 131.0 mmol/L (136-145)
[2024-10-06 09:07] LABS: ESTIMATED GFR 70.0 mL/min (>60)
[2024-10-06] MEDS: Pantoprazole 40 MG in Sodium Chloride 0.9% 10 ML IVPUSH SCH (12:04)
[2024-10-06 15:00] LABS: BLOOD UREA NITROGEN,BUN 10.0 mg/dL (7.0-18.0); CARBON DIOXIDE,CO2 23.4 mmol/L (21.0-32.0); CHLORIDE,CL 100.0 mmol/L (98-107); CREATININE 1.1 mg/dL (0.6-1.0); EST CRCL DRUG DOSING (CG) 65.16 mL/min; GLUCOSE RANDOM 219.0 mg/dL (74-106); POTASSIUM,K 3.9 mmol/L (3.5-5.1); SODIUM,NA 130.0 mmol/L (136-145)
[2024-10-06 15:06] LABS: ESTIMATED GFR 70.0 mL/min (>60)
== END 2024-10-06 16:22 | disposition home or self-care (01) | DRG 689 ==
LOC: MW.ED 15:36 → MW.MS 19:32 → MW.ICU 10-05 11:49 → OBSVTOIN 10-05 11:49
PROVIDERS: ADMIT Internal Medicine; ATTEND Internal Medicine
DX: N30.00 Acute cystitis without hematuria (principal); E10.10 Type 1 diabetes mellitus with ketoacidosis without coma; N17.9 Acute kidney failure, unspecified; E86.0 Dehydration; I10 Essential (primary) hypertension; Z79.4 Long term (current) use of insulin; Z87.440 Personal history of urinary (tract) infections; Z79.899 Other long term (current) drug therapy
CPT/HCPCS: 36415; 74177; 74177-26; 80048; 80053; 81001; 82009; 82803; 82947; 83036; 83605; 83690; 83735; 84703; 85025; 87086; 87088; 87186; 96361; 96365; 96375; 96376; 99222; 99231; 99238; 99283; 99285-25; A9270-GY; G0378; J0696; J1790; J1815-GY; J1920; J2405; J2470; J2765; J3475; J3480; J3490; J7030; Q9967

== ENCOUNTER 2024-10-24 20:43 | Emergency (ER) | payer OTHER ==
[2024-10-24] MEDS ORDERED: 50% Dextrose in Water 50 ML Syringe IVPUSH PRN (20:59)
[2024-10-24 21:06] LABS: BASOPHILS ABSOLUTE AUTO 0.03 K/uL (0.00-0.20); BASOPHILS PERCENT AUTO 0.2 % (0.0-1.0); EOSINOPHILS ABSOLUTE AUTO 0.01 K/uL (0.00-0.45); EOSINOPHILS PERCENT AUTO 0.1 % (0.0-6.0); IMMATURE GRAN ABSOLUTE AUTO 0.07 K/uL (0.00-0.05); IMMATURE GRAN PERCENT AUTO 0.5 % (0.0-0.4); LYMPHOCYTES ABSOLUTE AUTO 0.51 K/uL (1.00-4.80); LYMPHOCYTES PERCENT AUTO 3.4 % (24.0-44.0); MEAN PLATELET VOLUME 9.7 fL (9.4-12.3); MONOCYTES ABSOLUTE AUTO 0.11 K/uL (0.00-0.80); MONOCYTES PERCENT AUTO 0.7 % (0.0-8.0); NEUTROPHILS ABSOLUTE AUTO 14.28 K/uL (1.80-7.70); NEUTROPHILS PERCENT AUTO 95.1 % (41.0-71.0); NRBC ABSOLUTE 0.00 K/uL (0.00-0.02); NRBC PERCENT 0.0 /100WBC (0.0-0.2); PLATELET COUNT,PLT 445 K/uL (150-400); RED BLOOD CELL COUNT 4.00 M/uL (4.10-5.30); WHITE BLOOD CELL COUNT,WBC 15.01 K/uL (3.9-11.3)
[2024-10-24] MEDS: Insulin Regular, Human 100 Units/ML 10 ML Vial SUBCUT ONE (21:07)
[2024-10-24] MEDS: Ondansetron 4 MG/2 ML SDV IVPUSH ONE (21:07)
[2024-10-24 21:39] LABS: A/G RATIO 0.6 (0.9-1.6); ALANINE AMINOTRANSFERASE,ALT 23.0 IU/L (14-63); ASPARTATE AMNIOTRANSFERASE,AST 29.0 IU/L (15-37); BILIRUBIN TOTAL 1.3 mg/dL (0.2-1.0); BLOOD UREA NITROGEN,BUN 30.0 mg/dL (7.0-18.0); CARBON DIOXIDE,CO2 15.6 mmol/L (21.0-32.0); CHLORIDE,CL 97.0 mmol/L (98-107); CREATININE 1.5 mg/dL (0.6-1.0); EST CRCL DRUG DOSING (CG) 47.36 mL/min; POTASSIUM,K 4.5 mmol/L (3.5-5.1); PROTEIN TOTAL,TP 7.6 g/dL (6.4-8.2); SODIUM,NA 131.0 mmol/L (136-145)
[2024-10-24 21:40] LABS: ESTIMATED GFR 48.0 mL/min (>60); GLUCOSE RANDOM 505.0 mg/dL (74-106)
[2024-10-24 22:24] LABS: BLOOD UREA NITROGEN,BUN 32.0 mg/dL (7.0-18.0); CARBON DIOXIDE,CO2 17.7 mmol/L (21.0-32.0); CHLORIDE,CL 103.0 mmol/L (98-107); CREATININE 1.5 mg/dL (0.6-1.0); EST CRCL DRUG DOSING (CG) 47.36 mL/min; GLUCOSE RANDOM 413.0 mg/dL (74-106); POTASSIUM,K 3.7 mmol/L (3.5-5.1); SODIUM,NA 135.0 mmol/L (136-145)
[2024-10-24 22:28] LABS: ESTIMATED GFR 48.0 mL/min (>60)
[2024-10-24 22:33] LABS: GLUCOSE,URINE >=1000 mg/dL (NEGATIVE); OCCULT BLOOD,URINE SMALL (NEGATIVE)
[2024-10-24 22:36] LABS: APPEARANCE,URINE HAZY
[2024-10-24 22:39] LABS: EPITHELIAL CELLS,URINE RARE (NONE-FEW)
[2024-10-24] MEDS: Iopamidol 755 MG/ML 500 ML Multipack Bottle IVPUSH STA (22:52)
[2024-10-25] MEDS ORDERED: 50% Dextrose in Water 50 ML Syringe IVPUSH PRN ×2 (01:03→02:13)
[2024-10-25] MEDS: Insulin Regular, Human 100 Units/ML 10 ML Vial IVPUSH ONE (01:13)
[2024-10-25 01:51] LABS: BASE EXCESS VENOUS -10.9 (-2.0-3.0); BICARBONATE,VENOUS 12.0 mEq/L (22-29); PCO2 VENOUS 20.0 mmHG (41-51); PH,VENOUS 7.39 (7.32-7.43); PO2 VENOUS 64.0 mmHG (35-45)
[2024-10-25 02:05] LABS: BLOOD UREA NITROGEN,BUN 33.0 mg/dL (7.0-18.0); CARBON DIOXIDE,CO2 14.3 mmol/L (21.0-32.0); CHLORIDE,CL 101.0 mmol/L (98-107); CREATININE 1.6 mg/dL (0.6-1.0); EST CRCL DRUG DOSING (CG) 44.4 mL/min; ESTIMATED GFR 44.0 mL/min (>60); GLUCOSE RANDOM 408.0 mg/dL (74-106); POTASSIUM,K 3.7 mmol/L (3.5-5.1); SODIUM,NA 134.0 mmol/L (136-145)
== END 2024-10-25 04:30 ==
LOC: MW.ED 20:43
DX: E10.10 Type 1 diabetes mellitus with ketoacidosis without coma (principal); R10.84 Generalized abdominal pain; D64.9 Anemia, unspecified; I10 Essential (primary) hypertension; R94.4 Abnormal results of kidney function studies; Z79.4 Long term (current) use of insulin; Z79.899 Other long term (current) drug therapy; Z75.3 Unavailability and inaccessibility of health-care facilities
CPT/HCPCS: 36415; 71045; 74177; 80048; 80053; 81001; 81025; 82009; 82803; 82947; 83036; 83690; 85025; 96361; 96374; 99285; A9270; J1815; J2405; J7030; Q9967; 99283